=== PATIENT | female | born 1940 | race Caucasian/White ===

== ENCOUNTER → 2023-05-25 10:44 | Outpatient (REF) | payer OTHER, SELFPAY | LOC: WDC 10:44 | PROVIDERS: ATTENDING PHYSICIAN Obstetrics & Gynecology; FAMILY PHYSICIAN Family Medicine | DX: M81.0 Age-related osteoporosis without current pathological fracture (principal); Z12.31 Encounter for screening mammogram for malignant neoplasm of breast | CPT/HCPCS: 77063; 77067; 77080 ==

== ENCOUNTER → 2023-10-04 11:11 | Outpatient (REF) | payer OTHER, SELFPAY | LOC: REG 11:11 | PROVIDERS: ATTENDING PHYSICIAN Physician Assistant; FAMILY PHYSICIAN Family Medicine | DX: M25.559 Pain in unspecified hip (principal); M81.0 Age-related osteoporosis without current pathological fracture | CPT/HCPCS: 73523 ==

== ENCOUNTER → 2024-04-05 12:31 | Outpatient (REF) | payer OTHER, SELFPAY | LOC: HWRAD 12:31 | PROVIDERS: ATTENDING PHYSICIAN Family Medicine | DX: R91.1 Solitary pulmonary nodule (principal) | CPT/HCPCS: 71250 ==

== ENCOUNTER → 2024-06-13 13:56 | Outpatient (REF) | payer OTHER, SELFPAY | LOC: WDC 13:56 | PROVIDERS: ATTENDING PHYSICIAN Family Medicine | DX: Z12.31 Encounter for screening mammogram for malignant neoplasm of breast (principal) | CPT/HCPCS: 77063; 77067 ==